=== PATIENT | male | born 1970 | race African-American/Black ===

== ENCOUNTER 2023-04-13 00:08 | Emergency (ER) | payer MEDICAID, OTHER ==
[~2023-04-13] VITALS: Ht 177.8 cm; Wt 80.0 kg
[2023-04-13 00:09] VITALS: O2SAT 98
[2023-04-13] MEDS ORDERED: DIPHENHYDRAMINE 50MG/ML VIAL IV ONE (00:45)
[2023-04-13] MEDS ORDERED: FAMOTIDINE 20MG/2ML VIAL IV ONE (00:45)
[2023-04-13] MEDS ORDERED: METHYLPREDNISOLONE SOD SUCC 125MG/2ML (ACT-O-VIAL) IV ONE (00:45)
[2023-04-13] MEDS ORDERED: PRED10TA MT (03:46)
[2023-04-13] MEDS ORDERED: DIPH25CA83 MT (03:46)
[2023-04-13 03:53] VITALS: BP 147/97; PULSE 85; RESP 18; TEMP 98.5
== END 2023-04-13 03:54 | disposition home or self-care (01) ==
LOC: ER 00:34
DX: T78.40XA Allergy, unspecified, initial encounter (principal); J45.909 Unspecified asthma, uncomplicated; Z88.0 Allergy status to penicillin; X58.XXXA Exposure to other specified factors, initial encounter
CPT/HCPCS: 99284; 96374; 96375; J1200; J3490; J2930

== ENCOUNTER 2023-12-20 14:06 | Emergency (ER) | payer MEDICAID ==
[~2023-12-20] VITALS: Ht 182.9 cm; Wt 100.0 kg
[~2023-12-20 14:06] MED LIST: DIPH25CA83 MT; PRED10TA MT
[2023-12-20 14:13] VITALS: BP 197/118; PULSE 93; RESP 20; TEMP 99.1; O2SAT 96
== END 2023-12-20 16:01 | disposition left against medical advice (07) ==
LOC: ER 14:06
DX: R10.9 Unspecified abdominal pain (principal); Z53.21 Procedure and treatment not carried out due to patient leaving prior to being seen by health care provider